=== PATIENT | female | born 1995 | race Caucasian/White ===

== ENCOUNTER 2017-07-01 22:20 | Emergency (ER) | payer SELFPAY ==
[2017-07-01 22:25] VITALS: BP 136/79; PULSE 70; TEMP 98.4; BMI 17.7
[2017-07-01] MEDS ORDERED: FAMOTIDINE 20 MG/50 ML IVPB 50 ML IVPB ONE ×2 (22:39→22:44)
[2017-07-01] MEDS ORDERED: methylPREDNISolone NA SUCC 125 MG/2 ML VIAL IVPB ONE (22:39)
[2017-07-01] MEDS ORDERED: methylPREDNISolone NA SUCC 1000 MG/8 ML VIAL ONE (22:45)
[2017-07-01] MEDS ORDERED: ALBUTEROL SO4 2.5/IPRATROPIUM 0.5 INH SOL 3 ML VIAL.NEB. NEB ONE ×2 (22:52→23:07)
--- NOTE | 2017-07-01 22:52 | PDOC ---
History of Present Illness - General Chief Complaint: Allergic Reaction Stated Complaint: ALLERGIC REACTION Time Seen by Provider: 07/01/17 22:34 - History of Present Illness Initial Comments: 21 year old healthy female with PMH of seasonal allergies and anxiety presenting with bilateral eye lid swelling for the past 5 hours. She had some peanuts around 17:30 PM then noticed rhinorrhea and cough after 30 minutes. Shortly after she noticed swelling of her left eyelid which eventually presented in her right eye lid as well. She denies respiratory symptoms or oral swelling/ drooling. She has no family members with food allergies and has eaten peanuts without issue in the past. She denies fevers, cough chills, nausea, vomiting, diarrhea, chest pain, or other sick symptoms 07/01/17 22:43 Past History - Past Medical History Allergies/Adverse Reactions: Allergies Allergy/AdvReac Type Severity Reaction Status Date / Time No Known Allergies Allergy Verified 07/01/17 22:23 Home Medications: Ambulatory Orders NK [No Known Home Medication] 03/16/15 Psychiatric Problems: Yes (anxiety) - Immunization History Immunization Up to Date: Yes - Psycho/Social/Smoking Cessation Hx Anxiety: No Suicidal Ideation: No Smoking History: Never smoked Have you smoked in the past 12 months: No Hx Alcohol Use: No Substance Use Type: None Review of Systems - Review of Systems Constitutional: No: Chills, Diaphoresis, Fever HEENTM: No: Blurred Vision, Recent change in vision Respiratory: No: Cough, Shortness of Breath, Wheezing Cardiac (ROS): No: Chest Pain, Edema, Lightheadedness ABD/GI: No: Constipated, Diarrhea, Nausea, Vomiting Integumentary: Yes: Change in Color, Lesions Neurological: No: Headache, Paresthesia *Physical Exam - Vital Signs Last Vital Signs Temp Pulse Resp BP Pulse Ox 98.4 F 70 18 136/79 100 07/01/17 22:23 07/01/17 22:23 07/01/17 22:23 07/01/17 22:23 07/01/17 22:23 - Physical Exam General Appearance: Yes: Nourished, Appropriately Dressed. No: Apparent Distress HEENT: positive: EOMI, KOLBY, Normal Voice, Pharynx Normal, Pharyngeal Erythema, Rhinorrhea, Other (Bilateral swollen eyelids). negative: Normal ENT Inspection , Muffled/Hoarse voice Neck: positive: Trachea midline, Normal Thyroid, Supple. negative: Tender, Rigid Respiratory/Chest: positive: Lungs Clear, Normal Breath Sounds. negative: Chest Tender, Respiratory Distress, Accessory Muscle Use Cardiovascular: positive: Regular Rhythm, Regular Rate, S1, S2. negative: Edema , Murmur Gastrointestinal/Abdominal: positive: Normal Bowel Sounds, Flat, Soft. negative : Tender Musculoskeletal: positive: Normal Inspection Extremity: positive: Normal Inspection, Normal Range of Motion Integumentary: positive: Dry, Warm. negative: Normal Color (Slight periorbital edema) Neurologic: positive: Fully Oriented, Alert, Normal Mood/Affect, Normal Response , Motor Strength 5/5 Medical Decision Making - Medical Decision Making 21 year old female with suspected peanut allergy reaction without respiratory symptoms. Gave duonebs, 80 of solumedrol, and 25 of Benadryl all IV. Will recheck in 30 minutes for resolution of symptoms. 07/01/17 23:40 Patient signed out to Dr. Chavez in stable condition after being counseled about epi-pen usage. Will re-examine the patient in 30 minutes and assess for discharge. 07/01/17 23:58 07/02/17 00:00 *DC/Admit/Observation/Transfer Diagnosis at time of Disposition: Allergy to food - Discharge Dispostion Disposition: HOME Condition at time of disposition: Improved Admit: No - Patient Instructions Printed Discharge Instructions: DI for Eye Allergic Reaction Additional Instructions: You were seen for an allergic reaction after eating peanuts. You should avoid all nuts until you see your primary care physician or an options trader to determine your exact allergy. We prescribed you an epi-pen that you should car pick up driver and carry with you in case you have another allergic reaction. - Attestations Physician Attestion: Dr. Velasquez attests this. 07/01/17 23:56
== END 2017-07-02 00:23 | disposition home or self-care (01) ==
LOC: JER 22:20
PROC: 3E0F7GC Introduction of Other Therapeutic Substance into Respiratory Tract, Via Natural or Artificial Opening (ICD-10-PCS; principal; 2017-07-01)
PROC: 3E033GC Introduction of Other Therapeutic Substance into Peripheral Vein, Percutaneous Approach (ICD-10-PCS; 2017-07-01)
PROC: 3E033GC Introduction of Other Therapeutic Substance into Peripheral Vein, Percutaneous Approach (ICD-10-PCS; 2017-07-01)
PROC: 3E0333Z Introduction of Anti-inflammatory into Peripheral Vein, Percutaneous Approach (ICD-10-PCS; 2017-07-01)
DX: T78.1XXA Other adverse food reactions, not elsewhere classified, initial encounter (principal); H02.846 Edema of left eye, unspecified eyelid; R05 Cough; J34.89 Other specified disorders of nose and nasal sinuses; X58.XXXA Exposure to other specified factors, initial encounter; Y93.89 Activity, other specified; Y92.89 Other specified places as the place of occurrence of the external cause
CPT/HCPCS: 99281-25

== ENCOUNTER 2017-12-01 15:17 | Emergency (ER) | payer OTHER ==
[2017-12-01 15:22] VITALS: BP 109/44; PULSE 102; TEMP 98; BMI 18.1
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
== END 2017-12-01 17:11 | disposition home or self-care (01) ==
LOC: JER 15:17
DX: F41.0 Panic disorder [episodic paroxysmal anxiety] (principal)
CPT/HCPCS: 99281-25

== ENCOUNTER 2019-04-25 23:10 | Inpatient (IN) | payer OTHER ==
[2019-04-25] MEDS ORDERED: AMPICILLIN - 2 GM in SODIUM CHLORIDE 100 ML IVPB ONE (23:45)
[2019-04-26] MEDS ORDERED: AMPICILLIN SODIUM 2 GM VIAL ONE (00:26)
[2019-04-26 01:15] LABS: BASO % 0.4 % (0-2.0); EOS % 1.3 % (0-4.5); HEMATOCRIT 37.3 % (32.4-45.2); HEMOGLOBIN 12.5 GM/dL (10.7-15.3); LYMPH % 12.8 % (8-40); MCH 28.9 pg (25.7-33.7); MCHC 33.5 g/dl (32.0-36.0); MEAN CELL VOLUME 86.5 fl (80-96); MEAN PLT VOLUME 10.4 fl (7.5-11.1); MONO % 8.1 % (3.8-10.2); NEUT % 77.4 % (42.8-82.8); PLATELET COUNT 203 K/MM3 (134-434); RBC 4.31 M/mm3 (3.60-5.2); RDW 12.2 % (11.6-15.6)
[2019-04-26 01:24] VITALS: BMI 25.2
[2019-04-26 01:32] LABS: INR 0.91 (0.83-1.09); PROTHROMBIN TIME (PATIENT) 10.7 SEC (9.7-13.0)
[2019-04-26 01:36] LABS: BLOOD UREA NITROGEN 9.1 mg/dL (7-18); CALCIUM 9.2 mg/dL (8.5-10.1); CREATININE 0.7 mg/dL (0.55-1.3); POTASSIUM 4.4 mmol/L (3.5-5.1)
[2019-04-26] MEDS ORDERED: TUBERCULIN PPD 5 TU/0.1ML SYRINGE (IN PATIENT USE ONLY) ID ONE (01:45)
[2019-04-26] MEDS ORDERED: DEXTROSE 5%-LACTATED RINGERS 1,000 ML IV SCH ×2 (01:45→10:30)
[2019-04-26] MEDS: AMPICILLIN - 1 GM in SODIUM CHLORIDE 100 ML IVPB SCH ×4 (05:00→18:03)
[2019-04-26] MEDS ORDERED: BUTORPHANOL TARTRATE 2 MG/ML VIAL ONE (05:09)
[2019-04-26] MEDS ORDERED: PROMETHAZINE HCL 25 MG/1 ML VIAL ONE ×2 (05:10→10:21)
[2019-04-26] MEDS ORDERED: AMPICILLIN SODIUM 1 GM VIAL ONE ×3 (05:10→13:01)
[2019-04-26] MEDS ORDERED: DEXTROSE 5%-LACTATED RINGERS 1,000 ML IV ONE (06:00)
[2019-04-26] MEDS ORDERED: BUTORPHANOL TARTRATE 2 MG/ML VIAL IVPB ONE ×2 (06:00→14:15)
[2019-04-26] MEDS ORDERED: PROMETHAZINE HCL 25 MG/1 ML VIAL IVPB ONE ×2 (06:00→14:15)
[2019-04-26] MEDS ORDERED: BUTORPHANOL TARTRATE 1 MG/ML VIAL ONE (10:21)
--- NOTE | 2019-04-26 10:35 | HP ---
Past Medical History - Primary Care Physician PCP:: Axel Marquez - Admission Chief Complaint: 23yo P0 with at EGA 37w5d admitted in spontaneous labor. History of Present Illness: The pt had uncomplicated care. Vaginal GBS positive Pt was admitted with spontaneous labor. She appears to have SROM at unknown time. The pt was given IV abx for prophylaxis. The pt's labor had progressed to active phase spontaneously. Pain has been managed with IV sedation, per pt request. 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: No: Alzheimer's, CVA, Dementia, Migraine, Multiple Sclerosis, Peripheral Neuropathy, Parkinson's, Seizure, Syncope, TIA, Vertigo, Other Cardiovascular: No: AFIB, Aneurysm, Aortic Insufficiency, Aortic Stenosis, CAD, CHF, Deep Vein Thrombosis, HTN, Hyperlipdemia, [place], Mitral Insufficiency, Mitral Stenosis, Murmur, Pulmonary Hypertension, Other Pulmonary: No: Asthma, Bronchitis, Cancer, COPD, O2 Dependent, Pneumonia, Previously Intubated, Pulmonary Embolus, Pulmonary Fibrosis, Sleep Apnea, Other Gastrointestinal: No: Ascites, Cancer, Constipation, Crohn's Disease, Diverticulitis, Diverticulosis, Esophageal Varices, Gastritis, GERD, GI Bleed, Hemorrhoids, Hiatal Hernia, Inflamatory Bowel Disease, Irritable Bowel Disease, Pancreatitis, Peptic Ulcer Disease, Ulcerative Colitis, Other Hepatobiliary: No: Cirrhosis, Cholelithiasis, Cholecystitis, Choledocholithiasis , Hepatitis A, Hepatitis B, Hepatitis C, Other Reproductive: No: Ectopic , Endometriosis, Fibroids, PID, Polycystic Ovary Syndrome, Postmenopausal, Other ...: 1 ...Para: 0 ...LMP: 08/28/18 ...EDC by Dates: 06/04/19 ...EDC by Sono: 05/11/19 Heme/Onc: No: Anemia, B12 Deficiency, Bleeding Disorder, Cancer, Current Chemotherapy, Current Radiation Therapy, Hemochromatosis, Hypercoaguable State, Myeloproliferative Synd, Sickle Cell Disease, Sickle Cell Trait, Thrombocytopenia, Other Infectious Disease: No: AIDS, C-Diff, Herpes Zoster, HIV, MRSA, STD's, Tuberculosis, VREF, Other Psych: Yes: Anxiety Musculoskeletal: No: Bursitis, Chronic low back pain, Hemiparesis, Hemiplegia, Osteoarthritis, Paraplegia, Other Rheumatology: No: Fibromyalgia, Gout, Lupus, Rheumatoid Arthritis, Sarcoidosis, Vasculitis, Other ENT: No: Allergic Rhinitis, Sinusitis, Other Endocrine: No: [place]'s Disease, Acworth's Disease, Diabetes Insipidus, Diabetes Mellitus, Hyperparathyroidism, Hyperthyroidism, Hypothyroidism, Osteopenia, SIADH, Other Dermatology: No: Basal Cell, Cellulitis, Eczema, Melanoma, Psoriasis, Squamous Cell, Other - Past Surgical History Past Surgical History: Yes: None Hx Myomectomy: No Hx Transabdominal Cerclage: No - Smoking History Smoking history: Never smoked Have you smoked in the past 12 months: No - Alcohol/Substance Use Hx Alcohol Use: No History of Substance Use: reports: None - Social History Usual Living Arrangement: Yes: With Spouse ADL: Independent History of Recent Travel: No Home Medications - Allergies Allergies/Adverse Reactions: Allergies Allergy/AdvReac Type Severity Reaction Status Date / Time nut - unspecified Allergy Mild Rash Verified 04/26/19 01:29 - Home Medications Home Medications: Ambulatory Orders 19 Tablet 1 tab PO DAILY 04/26/19 Family Disease History - Family Disease History Family History: Denies Review of Systems - Review of Systems Constitutional: reports: No Symptoms, Other (pain with contractions) Eyes: reports: No Symptoms HENT: reports: No Symptoms Neck: reports: No Symptoms Cardiovascular: reports: No Symptoms Respiratory: reports: No Symptoms Gastrointestinal: reports: No Symptoms Genitourinary: reports: No Symptoms Breasts: reports: No Symptoms Reported Musculoskeletal: reports: No Symptoms Integumentary: reports: No Symptoms Neurological: reports: No Symptoms Endocrine: reports: No Symptoms Hematology/Lymphatic: reports: No Symptoms Psychiatric: reports: No Symptoms Pain Intensity: 9 Physical Exam - Maternity Vital Signs: Vital Signs Temperature 98.9 F 04/26/19 08:00 Pulse Rate 75 04/26/19 10:00 Respiratory Rate 17 04/26/19 10:00 Blood Pressure 119/74 04/26/19 10:00 O2 Sat by Pulse Oximetry (%) Constitutional: Yes: Well Nourished, No Distress, Calm Eyes: Yes: WNL, Conjunctiva Clear HENT: Yes: WNL, Atraumatic, Normocephalic Neck: Yes: WNL, Supple, Trachea Midline Cardiovascular: Yes: WNL, Regular Rate and Rhythm Lungs: Clear to auscultation, Normal air movement Breast(s): Yes: WNL - Abdominal Exam/OB Fundal Height: 38 Number of Fetuses: Single Presentation: Vertex Contractions: Yes Regularity: Regular Intensity: Mod/Strong Monitor Mode: External Heart Rate (range): 140 Heart Rate Location: Midline Category: I Accelerations: None (After stadol given) Decelerations: None - Vaginal Exam/OB Vaginal Bleediing: Bloody Show Speculum Exam: No Dilatation (cm): 8.5 Effacement (%): 90 Amniotic Membrane Status: Leaking Presentation: Vertex/Position Station: 0 - Physical Exam Musculoskeletal: Yes: WNL Extremities: Yes: WNL Edema: No Integumentary: Yes: WNL Deep Tendon Reflex Grade: Normal +2 ...Motor Strength: WNL Psychiatric: Yes: WNL, Alert, Oriented - Labs Lab Results: CBC, BMP 04/26/19 00:15 04/26/19 00:15 Hemorrhage Risk Assessment - Risk Factors Medium Risk Factors: Yes: None High Risk Factors: Yes: None Risk Score: 1 Risk Level: Medium Risk Imaging - Results Ultrasound: Report Reviewed Assessment/Plan 23yo P0 with at EGA 37w5d admitted in spontaneous labor. The pt has been progressing in active phase. Plan to continue monitoring progress. She declined an epidural but requested Stadol/Phenergan. Sedation was given x 2 Fetus with Category I tracing and does not require intervention.
[2019-04-26] MEDS ORDERED: FENTANYL/BUPIVACAINE/NS/PF - PCEA - 50 ML DISP.SYRIN EP ONE ×2 (12:14→16:19)
[2019-04-26] MEDS ORDERED: NALOXONE HCL 0.4 MG/ML VIAL IVPUSH PRN (13:32)
[2019-04-26] MEDS ORDERED: FENTANYL/BUPIVACAINE/NS/PF - PCEA - 50 ML DISP.SYRIN EP SCH ×2 (13:45→13:54)
--- NOTE | 2019-04-26 15:54 | PN ---
Progress Note, Labor Vaginal Exam #1 Labor Exam Date: 04/26/19 Labor Exam Time: 15:50 Heart Rate (range): 145 Dilatation: 7-8 Effacement (%): 90 Amniotic Membrane Status: Intact Presentation: Vertex/Position Station: -1 Remarks: Overall MF status reassuring AROM - clear FHR c/w recent Stadol administration - O2 by face mask will continue monitoring progress of labor
[2019-04-26] MEDS ORDERED: OXYTOCIN 20 UNITS in 0.9% NS 20 UNIT/1,000 ML INFUS.BAG IV ONE ×2 (17:00→18:43)
[2019-04-26] MEDS ORDERED: LIDOCAINE HCL 1% PRESERVATIVE FREE - 30ML VIAL ONE (17:00)
[2019-04-26] MEDS ORDERED: ACETAMINOPHEN 325 MG TABLET (FP) PO PRN (17:45)
[2019-04-26] MEDS ORDERED: METHYLERGONOVINE MALEATE 0.2 MG/1 ML AMP IM PRN (17:45)
[2019-04-26] MEDS ORDERED: IBUPROFEN 600 MG TABLET (FP) PO PRN (17:45)
[2019-04-26] MEDS ORDERED: WITCH HAZEL 50% (TUCKS) 40 PAD/JAR PAD TP PRN (17:45)
[2019-04-26] MEDS ORDERED: BENZOCAINE 20% 57 GM BOTTLE TP PRN (17:45)
[2019-04-26] MEDS ORDERED: BISACODYL 10 MG SUPP.RECT RC PRN (17:45)
[2019-04-26] MEDS ORDERED: BENZOCAINE 28 GM HEMORRHOIDAL OINTMENT TP PRN (17:45)
--- NOTE | 2019-04-26 17:51 | PN ---
Delivery - Delivery Vaginal Delivery: No Problems Type of Anesthesia: Local, Spinal Episiotomy/Laceration: Midline, 2nd degree EBL (cc): 300 Delivery, Single - Stages of Labor Date 1st Stage Initiatied: 04/25/19 Time 1st Stage Initiated: 13:00 Date 2nd Stage Initiated: 04/26/19 Time 2nd Stage Initiated: 17:05 Date of Delivery: 04/26/19 Time of Delivery: 17:14 Date Placenta Delivered: 04/26/19 Time Placenta Delivered: 17:15 Placenta: Yes: Spontaneous - Condition of Infant Mounter Smoking Pipe/Aluminum Can Collector Present: No Infant Gender: Male Position: Left, OA - 1 Minute Total Score: 9 5 Minutes Total Score: 9 - Feeding Plan Initial Plan: Elected not to breastfeed exclusively throughout hospitalization Remarks - Remarks Remarks: Uncomplicated delivery of head and shoulders
[2019-04-26] MEDS: D5W-LR W/ 20 UNITS OXYTOCIN 20 UNIT/1,000 ML INFUS.BAG IV SCH ×2 (18:04→18:45)
[2019-04-26 18:23] LABS: VENOUS PH 7.27 (7.31-7.41)
[2019-04-26 18:26] LABS: ARTERIAL BLD GAS O2 SATURATION 18.2 % (95-98); ARTERIAL BLOOD GAS BASE EXCESS -3.6 meq/l (-2-2); ARTERIAL BLOOD GAS PCO2 62.8 mmHg (35-45); ARTERIAL BLOOD GAS pH 7.23 (7.35-7.45)
[2019-04-26 18:27] LABS: VENOUS PO2 17.7 mmHg (30-40)
[2019-04-26 18:31] LABS: ARTERIAL BLOOD GAS PO2 15.6 mmHg (80-105)
[2019-04-27] MEDS: AMPICILLIN - 1 GM in SODIUM CHLORIDE 100 ML IVPB SCH (06:24)
[2019-04-27 09:17] LABS: BASO % 0.2 % (0-2.0); EOS % 0.4 % (0-4.5); HEMOGLOBIN 10.3 GM/dL (10.7-15.3); LYMPH % 7.2 % (8-40); MCH 29.1 pg (25.7-33.7); MCHC 34.2 g/dl (32.0-36.0); MEAN CELL VOLUME 85.1 fl (80-96); MEAN PLT VOLUME 9.3 fl (7.5-11.1); MONO % 8.8 % (3.8-10.2); NEUT % 83.4 % (42.8-82.8); PLATELET COUNT 150 K/MM3 (134-434); RBC 3.52 M/mm3 (3.60-5.2); RDW 12.6 % (11.6-15.6)
[2019-04-27] MEDS: PRENATAL VITAMINS W/ FOLIC ACID TABLET (FP) PO SCH (09:30)
[2019-04-27] MEDS: FERROUS SO4 325 MG TABLET (FP) PO SCH ×2 (09:31→16:40)
--- NOTE | 2019-04-27 13:51 | PN ---
Post Progress Note - Subjective Subjective: Patient without acute complaints. Reports tolerating oral intake without nausea or vomiting. Ambulating without dizziness. Denies fevers or chills. Pain well controlled with oral pain medication. c/o pereneal pain without difficulty. Passing flatus. Post Day: 1 Type of Delivery: Vital Signs: Vital Signs Temperature 97.8 F 04/27/19 08:02 Pulse Rate 73 04/27/19 08:02 Respiratory Rate 18 04/27/19 08:02 Blood Pressure 105/69 04/27/19 08:02 O2 Sat by Pulse Oximetry (%) 97 04/26/19 18:10 Breast Exam: Yes: Soft Uterus: Yes: Fundus Firm Abdomen/GI: Yes: Abdomen soft Lochia: Yes: Rubra Lochia, amount: Small Perineum: Yes: Laceration (significant hemorrhoids) Activity: Ambulating - Labs Labs: CBC WBC 15.0 K/mm3 (4.0-10.0) H 04/27/19 08:36 RBC 3.52 M/mm3 (3.60-5.2) L 04/27/19 08:36 Hgb 10.3 GM/dL (10.7-15.3) L 04/27/19 08:36 Hct 30.0 % (32.4-45.2) L D 04/27/19 08:36 MCV 85.1 fl (80-96) 04/27/19 08:36 MCH 29.1 pg (25.7-33.7) 04/27/19 08:36 MCHC 34.2 g/dl (32.0-36.0) 04/27/19 08:36 RDW 12.6 % (11.6-15.6) 04/27/19 08:36 Plt Count 150 K/MM3 (134-434) D 04/27/19 08:36 MPV 9.3 fl (7.5-11.1) D 04/27/19 08:36 Absolute Neuts (auto) 12.5 K/mm3 (1.5-8.0) H 04/27/19 08:36 Neutrophils % 83.4 % (42.8-82.8) H 04/27/19 08:36 Lymphocytes % 7.2 % (8-40) L D 04/27/19 08:36 Monocytes % 8.8 % (3.8-10.2) 04/27/19 08:36 Eosinophils % 0.4 % (0-4.5) 04/27/19 08:36 Basophils % 0.2 % (0-2.0) 04/27/19 08:36 Nucleated RBC % 0 % (0-0) 04/27/19 08:36 Assessment/Plan 23yo P1 s/p VSS, Afebrile h/h stable Continue routine care consider d/c home in am
[2019-04-27] MEDS ORDERED: SENNOSIDES/DOCUSATE COMBO (SENNA PLUS) TABLET (UD) PO PRN (22:00)
[2019-04-28] MEDS: FERROUS SO4 325 MG TABLET (FP) PO SCH (08:08)
[2019-04-28 08:25] VITALS: BP 116/81; PULSE 73; TEMP 98.3
[2019-04-28] MEDS: PRENATAL VITAMINS W/ FOLIC ACID TABLET (FP) PO SCH (09:15)
--- NOTE | 2019-04-28 09:36 | DS ---
Physical Exam-CONTACT CENTER REP Vital Signs: Vital Signs Temperature 98.3 F 04/28/19 08:00 Pulse Rate 73 04/28/19 08:00 Respiratory Rate 20 04/28/19 08:00 Blood Pressure 116/81 04/28/19 08:00 O2 Sat by Pulse Oximetry (%) 97 04/26/19 18:10 Constitutional: Yes: Well Nourished, No Distress, Calm Eyes: Yes: WNL HENT: Yes: WNL Neck: Yes: WNL, Supple, Trachea Midline Cardiovascular: Yes: WNL, Regular Rate and Rhythm Respiratory: Yes: WNL, Regular, CTA Bilaterally Gastrointestinal: Yes: WNL, Normal Bowel Sounds, Soft Renal/: Yes: WNL External Genitalia: Yes: Normal ....Post : Yes: Uterus firm, Uterus non-tender Breast(s): Yes: WNL Musculoskeletal: Yes: WNL Extremities: Yes: WNL Integumentary: Yes: WNL Wound/Incision: Yes: Clean/Dry, Well Approximated Neurological: Yes: WNL, Alert, Oriented ...Motor Strength: WNL Psychiatric: Yes: WNL, Alert, Oriented Labs: CBC, BMP 04/27/19 08:36 04/26/19 00:15 Delivery - Delivery Vaginal Delivery: No Problems Type of Anesthesia: Local, Epidural Episiotomy/Laceration: Midline, 2nd degree EBL (cc): 300 Delivery, Single - Stages of Labor Date 1st Stage Initiatied: 04/25/19 Time 1st Stage Initiated: 13:00 Date 2nd Stage Initiated: 04/26/19 Time 2nd Stage Initiated: 16:55 Date of Delivery: 04/26/19 Time of Delivery: 17:19 Time Placenta Delivered: 17:20 Placenta: Yes: Spontaneous - Condition of Legal Support Specialist/Siderographist Present: No Gender: Male Weight: 7 lb 14 oz Position: Left, OA Total Hours ROM (Hrs/Mins): 1 hour 30 minutes - 1 Minute Total Score: 9 5 Minutes Total Score: 9 - Feeding Plan Initial Plan: Elected not to breastfeed exclusively throughout hospitalization Remarks - Remarks Remarks: Uncomplicated delivery of head and shoulders Discharge Summary Reason For Visit: LABOR Procedures: Principal: Normal spontaneous vaginal delivery Hospital Course: Unremarkable Condition: Good - Instructions Diet, Activity, Other Instructions: Physical activity Resume your normal everyday activity as tolerated no heavy lifting or exercise until seen by your surgeon. You may walk unlimited pancho of and climb stairs. You may resume driving the car when you feel safe and comfortable behind the wheel. No sexual activity as instructed. Wound care If you have a bandage, leave it on, and keep dry for 48-72 hours. After that time discard the outer bandage. If they are tapes on the skin under the out of bandage leave them in place. They will peel off in the next 7 to 10 days. Do Not Peel them off. You may shower the day after surgery. If there are tapes present on the skin, you may shower over them. Diet There are no dietary restrictions. Eat healthy, high-fiber foods. Drink 6 to 8 glasses of liquid each day. This will assist in keeping your bowels are regular. Pain management You may take Tylenol or acetaminophen or Ibuprofen (for example, Motrin, Advil etc.) from my pain prescription medication is ordered should be taken as prescribed for moderate to severe pain. Call MD for any of the following: Severe pain not relieved by medication Fever of 101 or higher Excessive bleeding or drainage on dressing Inability to urinate Call Dr. Stanton and make appt. to be seen in 4 to 6 weeks. Referrals: Symone Stanton MD [Staff Physician] - Disposition: HOME - Home Medications Comprehensive Discharge Medication List: Ambulatory Orders 19 Tablet 1 tab PO DAILY 04/26/19
== END 2019-04-28 14:15 | disposition home or self-care (01) | DRG 560 ==
LOC: JDEL 23:10 → JLDR 23:45 → J3W 04-26 20:53
PROVIDERS: ADMIT Obstetrics & Gynecology; ATTEND Obstetrics & Gynecology
PROC: 0KQM0ZZ Repair Perineum Muscle, Open Approach (ICD-10-PCS; principal; 2019-04-26)
PROC: 10E0XZZ Delivery of Products of Conception, External Approach (ICD-10-PCS; 2019-04-26)
DX: O99.824 Streptococcus B carrier state complicating childbirth (principal); O70.1 Second degree perineal laceration during delivery; Z3A.37 37 weeks gestation of pregnancy; Z37.0 Single live birth
CPT/HCPCS: 36415; 36600; 59409; 71046-TC-FY; 80048; 82803; 85025; 85610; 85730; 86593; 86850; 86900; 86901

== ENCOUNTER 2019-05-28 21:48 | Emergency (ER) | payer OTHER ==
[2019-05-28 21:53] VITALS: TEMP 98.1; BMI 20.3
[2019-05-28] MEDS ORDERED: RACEPINEPHRINE IH SOL 2.25% 11.25 MG/0.5 ML VIAL IH ONE (21:58)
[2019-05-28] MEDS ORDERED: RACEPINEPHRINE IH SOL 2.25% 11.25 MG/0.5 ML VIAL NEB ONE (22:04)
[2019-05-28] MEDS ORDERED: methylPREDNISolone NA SUCC 125 MG/2 ML VIAL IVPB ONE (23:23)
[2019-05-28] MEDS ORDERED: FAMOTIDINE 20 MG/50 ML IVPB 20 MG/50 ML MG IVPB ONE (23:25)
--- NOTE | 2019-05-28 23:30 | PDOC ---
History of Present Illness - General Chief Complaint: Allergic Reaction Stated Complaint: ALLERGIC REACTION Time Seen by Provider: 05/28/19 21:55 History Source: Patient Exam Limitations: No Limitations - History of Present Illness Initial Comments: 05/28/19 23:28 23 yo female pmh of anaphylactic penut allergy presents to the ED after noted bilateral eye swelling and itchy throat at 9 pm. Pt notes eating a desert around 2 pm, unknown if nuts were in the desert. Pt states the last time she had this rxn was 2 years ago, has not seen an network design architect, does not own an epipen. Denies difficulty breathing, tongue swelling, drooling, admits bilateral eye swelling and itchy throat Past History - Past Medical History Allergies/Adverse Reactions: Allergies Allergy/AdvReac Type Severity Reaction Status Date / Time peanut Allergy Severe Difficulty Verified 05/28/19 21:53 Breathing Home Medications: Ambulatory Orders 19 Tablet 1 tab PO DAILY 04/26/19 EPINEPHrine (EPI-PEN 0.3MG) [Epipen 0.3MG -] 0.3 mg IM ASDIR #2 pens 05/28/19 Asthma: No Cancer: No Cardiac Disorders: No COPD: No Diabetes: No HTN: No Psychiatric Problems: Yes (anxiety) Seizures: No Thyroid Disease: No - Immunization History Immunization Up to Date: Yes - Suicide/Smoking/Psychosocial Hx Smoking History: Never smoked Have you smoked in the past 12 months: No Information on smoking cessation initiated: No Hx Alcohol Use: No Drug/Substance Use Hx: No Substance Use Type: None Hx Substance Use Treatment: No *Physical Exam - Vital Signs Last Vital Signs Temp Pulse Resp BP Pulse Ox 98.1 F 89 20 132/64 100 05/28/19 21:49 05/28/19 23:10 05/28/19 23:10 05/28/19 23:10 05/28/19 23:10 ED Treatment Course - Medications Given in the ED: ED Medications Discontinued Medications Generic Name Dose Route Start Last Admin Trade Name Freq PRN Reason Stop Dose Admin Epinephrine 1 vial 05/28/19 21:58 05/28/19 22:05 S-2 IH 05/28/19 21:59 1 vial ONCE ONE Administration Medical Decision Making - Medical Decision Making 05/29/19 01:55 Medications used in the ED, Benadryl may cause adverse events during breast feeding. Pt advised while on medication to not breast feed and to follow with rehabilitation specialist for clearance. *DC/Admit/Observation/Transfer Diagnosis at time of Disposition: Allergic reaction Qualifiers: Encounter type: subsequent encounter Qualified Code(s): T78.40XD - Allergy, unspecified, subsequent encounter - Discharge Dispostion Disposition: HOME Condition at time of disposition: Critical Decision to Admit order: No - Prescriptions Prescriptions: EPINEPHrine (EPI-PEN 0.3MG) [Epipen 0.3MG -] 0.3 mg IM ASDIR #2 pens - Referrals Referrals: Mehnaz Davis MD [Staff Physician] - - Patient Instructions Printed Discharge Instructions: DI for Anaphylaxis Additional Instructions: Please see your Primary Doctor and make an appointment with the [facility] [employer] referred to you. 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 Use the Epipen and Benadryl as described if you have another similar reaction and head to your closest ER. Return to the ER for new or concerning symptoms including but not limited to: difficulty breathing, facial swelling, swelling of the tongue, drooling, neck swelling. Do not breast feed until speaking with your contract administration specialist after taking Benadryl in ER. Thank you - Post Discharge Activity
--- NOTE | 2019-05-28 23:49 | PDOC ---
Documentation entered by Dayami Thurston SCRIBE, acting as scribe for Kasia Casarez DO. Kasia Casarez DO: This documentation has been prepared by the nena, Dayami Thurston SCRIBE, under my direction and personally reviewed by me in its entirety. I confirm that the documentation accurately reflects all work , treatment, procedures, and medical decision making performed by me. Attending Attestation - Resident Resident Name: Cornelius Joseph - ED Attending Attestation I have performed the following: I have examined & evaluated the patient, The case was reviewed & discussed with the resident, I agree w/resident's findings & plan, Exceptions are as noted - HPI HPI: 05/28/19 22:58 The patient is a 23-year-old female, with a past medical history of anxiety, who presents to the ED s/p allergic reaction. The patient had a dessert at 2 PM today and after at 5 PM she began experiencing facial swelling and throat itching. She reports having a peanut allergy. The patient denies any tongue swelling, throat swelling, excessive drooling or shortness of breath. - Physicial Exam PE: 05/28/19 23:47 agree with resident exam - Medical Decision Making 05/28/19 23:47 23-year-old female status post ALLERGIC reaction to unknown allergen On reevaluation at 11:40 PM patient is status post Solu-Medrol, Pepcid and Benadryl and racemic epinephrine She has some residual eyelid swelling but has no difficulty breathing swallowing There is no uvular edema She was sleeping comfortably until I woke her Plan for continued observation for a total of 4 hours, patient will be discharged home with Medrol Dosepak, EpiPen's Pepcid and Anadrol when necessary
[2019-05-29 02:09] VITALS: BP 131/69; PULSE 72
== END 2019-05-29 02:09 | disposition home or self-care (01) ==
LOC: JER 21:48
PROC: 3E0337Z Introduction of Electrolytic and Water Balance Substance into Peripheral Vein, Percutaneous Approach (ICD-10-PCS; principal; 2019-05-28)
PROC: 3E033GC Introduction of Other Therapeutic Substance into Peripheral Vein, Percutaneous Approach (ICD-10-PCS; 2019-05-28)
DX: T78.40XD Allergy, unspecified, subsequent encounter (principal); F41.9 Anxiety disorder, unspecified
CPT/HCPCS: 99282-25

== ENCOUNTER 2019-12-06 02:12 | Emergency (ER) | payer OTHER ==
[2019-12-06 02:25] VITALS: BP 127/78; PULSE 95; TEMP 98.4; BMI 18.7
[2019-12-06] MEDS ORDERED: SODIUM CHLORIDE 0.9% 500 ML INFUS.BAG IV ONE (02:40)
--- NOTE | 2019-12-06 02:46 | PDOC ---
History of Present Illness - General Chief Complaint: Nausea/Vomiting Stated Complaint: VOMITING Time Seen by Provider: 12/06/19 02:32 History Source: Patient Exam Limitations: No Limitations - History of Present Illness Initial Comments: 12/06/19 02:40 Aisha Ontiveros is a 24F presenting with nausea and vomiting. Patient was otherwise healthy today, said she ate [employer] in the AM, had a smoothie, and ate [employer] for dinner. 30 minutes after began having nausea, took a nap, woke up with epigastric pain and nausea, vomited 7x NBNB, no diarrhea. Has never had this pain before, denies any pain after meals, pain worse with standing and walking. Denies dizziness, chest pain, SOB, palpitations , urinary sx. Recently gave last May, LMP Toni.8, due soon, denies risk of . Denies alcohol/tobacco/drug use. Past History - Past Medical History Allergies/Adverse Reactions: Allergies Allergy/AdvReac Type Severity Reaction Status Date / Time peanut Allergy Severe Difficulty Verified 12/06/19 02:24 Breathing Home Medications: Ambulatory Orders Ondansetron [Zofran *Odt*] 4 mg SL TID #12 od.tablet 12/06/19 Asthma: No Cancer: No Cardiac Disorders: No COPD: No Diabetes: No HTN: No Psychiatric Problems: Yes (anxiety) Seizures: No Thyroid Disease: No - Immunization History Immunization Up to Date: Yes - Psycho Social/Smoking Cessation Hx Smoking History: Never smoked Have you smoked in the past 12 months: No Information on smoking cessation initiated: No Hx Alcohol Use: No Drug/Substance Use Hx: No Substance Use Type: None Hx Substance Use Treatment: No Review of Systems - Review of Systems Able to Perform ROS?: Yes Constitutional: No: Chills, Fever HEENTM: No: Symptoms Reported Respiratory: No: Cough, Shortness of Breath, SOB with Exertion, SOB at Rest, Stridor, Wheezing Cardiac (ROS): No: Chest Pain, Edema, Irregular Heart Rate, Lightheadedness, Palpitations, Syncope ABD/GI: Yes: Nausea, Poor Appetite, Poor Fluid Intake, Vomiting, Other ( abdominal pain). No: Abdominal Distended, Abd. Pain w/ defecation, Constipated , Diarrhea : No: Burning, Dysuria, Discharge, Frequency, Flank Pain, Hematuria, Incontinence Musculoskeletal: No: Back Pain, Gout, Joint Pain, Joint Swelling, Muscle Pain, Muscle Weakness Integumentary: No: Symptoms Reported Neurological: No: Headache, Numbness, Paresthesia, Pre-Existing Deficit, Seizure , Tremors, Weakness Endocrine: No: Symptoms Reported Hematologic/Lymphatic: No: Symptoms Reported All Other Systems: Reviewed and Negative *Physical Exam - Vital Signs Last Vital Signs Temp Pulse Resp BP Pulse Ox 98.4 F 95 H 20 127/78 100 12/06/19 02:24 12/06/19 02:24 12/06/19 02:24 12/06/19 02:24 12/06/19 02:24 - Physical Exam General Appearance: Yes: Nourished, Appropriately Dressed. No: Apparent Distress HEENT: positive: EOMI, KOLBY, Normal Voice, Symmetrical, Pharynx Normal, Hearing Grossly Normal. negative: Scleral Icterus (R), Scleral Icterus (L), Pharyngeal Erythema, Tonsillar Exudate, Tonsillar Erythema, Hearing Decreased Neck: positive: Trachea midline, Supple. negative: Tender, Normal Thyroid, Rigid, Lymphadenopathy (R), Lymphadenopathy (L), Tender lateral, Tender midline Respiratory/Chest: positive: Lungs Clear, Normal Breath Sounds. negative: Chest Tender, Respiratory Distress, Accessory Muscle Use, Crackles, Rales, Rhonchi, Stridor, Wheezing Cardiovascular: positive: Regular Rhythm, Regular Rate. negative: Murmur Gastrointestinal/Abdominal: positive: Normal Bowel Sounds, Soft. negative: Tender, Flat Musculoskeletal: positive: Normal Inspection. negative: CVA Tenderness, Vertebral Tenderness Extremity: positive: Normal Capillary Refill, Normal Inspection, Normal Range of Motion, Pelvis Stable Integumentary: positive: Normal Color, Dry, Warm Neurologic: positive: Fully Oriented, Alert, Normal Mood/Affect, Normal Response ED Treatment Course - LABORATORY CBC & Chemistry Diagram: 12/06/19 03:00 12/06/19 03:00 Medical Decision Making - Medical Decision Making 12/06/19 05:51 Patient presents with nausea and vomiting, acute onset, no history GB disease, no alcohol use. Unclear if other sick contacts at home. - CMP/CBC for infection/lytes - lipase for pancreatitis eval - test for eval nausea - UA/UC for UTI eval - 1L NS, Zofran, Pepcid, Maalox for symptom control 12/06/19 05:53 Tolerating PO at this time, but still unable to stand without feeling nauseated. Giving 10mg Reglan for nausea. Will get UA/UC. Labs notable for: - negative - CMP WNL - WBC 13.5 12/06/19 07:01 UA negative. Stable for discharge home with PMD f/u. Zofran Rx sent. Discharge - Discharge Information Problems reviewed: Yes Clinical Impression/Diagnosis: Nausea & vomiting Qualifiers: Vomiting type: unspecified Vomiting Intractability: non-intractable Qualified Code(s): R11.2 - Nausea with vomiting, unspecified Condition: Stable Disposition: HOME - Follow up/Referral - Patient Discharge Instructions Patient Printed Discharge Instructions: DI for Viral Gastroenteritis -- Adult Additional Instructions: Today you were evaluated for abdominal pain and nausea/vomiting. Your pain is likely being caused by a viral food poisoning. Your blood labs do not show any significant infection. We gave you Zofran and fluids and you felt better. At home, please eat bland foods and drink enough fluids such as Gatorade to stay hydrated. Please follow-up with your primary doctor in the next 3 days for further care. If you experience worsening nausea, vomiting, fever, chills, abdominal pain, or any other new or concerning symptoms, please return to the emergency room. - Post Discharge Activity
--- NOTE | 2019-12-06 03:02 | PDOC ---
Attending Attestation - Resident Resident Name: Misha Parker - ED Attending Attestation I have performed the following: I have examined & evaluated the patient, The case was reviewed & discussed with the resident, I agree w/resident's findings & plan - HPI HPI: 12/06/19 03:17 Pt has nausea and vomited multiple times. - Physicial Exam PE: 12/06/19 06:19 Afebrile HEENT normal lungs CTA B Heart S1S2 RRR abd epigastric pain no flank pain No extremity pain or edema pt appears well; however, she had some dry heaving and now complains a bit about epigastric reflux burning. - Medical Decision Making 12/06/19 05:11 not ; Pt has normal chemistry CBC shows elevated WBC. 12/06/19 05:54 Chem is normal Pt appears well However, she states that she has GERD and epigastric and esophageal pain, which will be treated with BENTYL Pt cannot give us urine yet. 12/06/19 06:20 labs normal Pt is stable for discharge home. She will be encouraged to eat non-acidic and non-spicy foods.
[2019-12-06] MEDS ORDERED: FAMOTIDINE 20 MG/50 ML IVPB 20 MG/50 ML MG IVPB ONE (03:08)
[2019-12-06] MEDS ORDERED: MAG HYDROX/AL HYDROX/SIMETH -MYLANTA- ORAL SUSPENSION PO ONE (03:08)
[2019-12-06] MEDS ORDERED: ONDANSETRON 4 MG/2 ML VIAL IVPUSH ONE (03:08)
[2019-12-06 03:47] LABS: BASO % 0.2 % (0-2.0); EOS % 1.8 % (0-4.5); HEMATOCRIT 38.5 % (32.4-45.2); HEMOGLOBIN 12.6 GM/dL (10.7-15.3); LYMPH % 8.7 % (8-40); MCH 27.3 pg (25.7-33.7); MCHC 32.7 g/dl (32.0-36.0); MEAN CELL VOLUME 83.4 fl (80-96); NEUT % 82.3 % (42.8-82.8); PLATELET COUNT 210 K/MM3 (134-434); RBC 4.61 M/mm3 (3.60-5.2); RDW 12.3 % (11.6-15.6); WHITE BLOOD COUNT 13.5 K/mm3 (4.0-10.0)
[2019-12-06 04:43] LABS: ALBUMIN 3.9 g/dl (3.4-5.0); BILIRUBIN,TOTAL 0.3 mg/dL (0.2-1); BLOOD UREA NITROGEN 15.2 mg/dL (7-18); CALCIUM 8.3 mg/dL (8.5-10.1); CREATININE 0.7 mg/dL (0.55-1.3); POTASSIUM 3.5 mmol/L (3.5-5.1); TOT PROT 6.7 g/dl (6.4-8.2)
[2019-12-06] MEDS ORDERED: METOCLOPRAMIDE HCL INJECTION 10 MG/2 ML VIAL IVPB ONE (05:20)
[2019-12-06] MEDS ORDERED: DICYCLOMINE HCL 20 MG TABLET PO ONE (05:39)
[2019-12-06 07:01] LABS: URINE APPEARANCE CLEAR; URINE BILIRUBIN NEGATIVE (NEGATIVE); URINE COLOR YELLOW; URINE GLUCOSE (UA) NEGATIVE (NEGATIVE); URINE KETONE 1+ (NEGATIVE); URINE LEUK ESTERASE NEGATIVE (NEGATIVE); URINE NITRITE NEGATIVE (NEGATIVE); URINE PROTEIN NEGATIVE (NEGATIVE)
== END 2019-12-06 07:11 | disposition home or self-care (01) ==
LOC: JER 02:12
PROC: 3E033GC Introduction of Other Therapeutic Substance into Peripheral Vein, Percutaneous Approach (ICD-10-PCS; principal; 2019-12-06)
PROC: 3E033GC Introduction of Other Therapeutic Substance into Peripheral Vein, Percutaneous Approach (ICD-10-PCS; 2019-12-06)
PROC: 3E033GC Introduction of Other Therapeutic Substance into Peripheral Vein, Percutaneous Approach (ICD-10-PCS; 2019-12-06)
DX: R11.2 Nausea with vomiting, unspecified (principal); Z91.010 Allergy to peanuts; F41.9 Anxiety disorder, unspecified
CPT/HCPCS: 36415; 80053; 81003; 83690; 84703; 85025; 87086; 96365; 96375; 99282-25

== ENCOUNTER 2020-07-15 12:25 | Emergency (ER) | payer OTHER ==
[2020-07-15] MEDS ORDERED: ACETAMINOPHEN 325 MG TABLET (FP) ONE (13:09)
[2020-07-15] MEDS ORDERED: ACETAMINOPHEN 500 MG TABLET (FP) PO ONE (13:21)
--- NOTE | 2020-07-15 13:21 | PDOC ---
History of Present Illness - General Chief Complaint: Pain Stated Complaint: ABD PAIN/ LBP 11WKS PG Time Seen by Provider: 07/15/20 12:50 History Source: Patient Exam Limitations: No Limitations - History of Present Illness Travel History: No Initial Comments: 07/15/20 13:18 HISTORY OF PRESENT ILLNESS: 24-year-old 2 para 1 with last menstrual p eriod 04/25 presents emergency department for evaluation of lower abdominal cramping radiating to her lower back. Patient reports cramping sensation has been present for the past 24 hours. She denies any vaginal discharge or vaginal bleeding. She denies dysuria, hematuria, rectal bleeding, diarrhea. Patient does report having increased constipation but attributes it to vitamins. She denies any nausea or vomiting. No recent travel or sick contacts. PAST MEDICAL HISTORY: Denies past medical history SURGICAL HISTORY: Denies ALLERGIES: No known drug allergies REVIEW OF SYSTEMS General/Constitutional: Denies fever or chills. Denies weakness, weight change. HEENT: Denies change in vision. Denies ear pain or discharge. Denies sore throat. Cardiovascular: Denies chest pain or shortness of breath. Respiratory: Denies cough, wheezing, or hemoptysis. Gastrointestinal: See HPI Genitourinary: Denies dysuria, frequency, or change in urination. Musculoskeletal: Denies joint or muscle swelling or pain. Denies neck or back pain. Skin and breasts: Denies rash or easy bruising. Neurologic: Denies headache, vertigo, loss of consciousness, or loss of sensation. Psychiatric: Denies depression or anxiety. Endocrine: Denies increased thirst. Denies abnormal weight change. Hematologic/Lymphatic: Denies anemia, easy bleeding, or history of blood clots. Allergic/Immunologic: Denies hives or skin allergy. Denies latex allergy. PHYSICAL EXAM General Appearance: Well-appearing, appropriately dressed. No apparent distress, no intoxication. Respiratory/Chest: Lungs CTAB. No shortness of breath, chest tenderness, respiratory distress, accessory muscle use. No crackles, rales, rhonchi, stridor, wheezing, dullness Cardiovascular: RRR. S1, S2. No JVD, murmur, bradycardia, tachycardia. Gastrointestinal/Abdominal: Normal bowel sounds. Abdomen soft, non-distended. No tenderness or rebound tenderness. No organomegaly, pulsatile mass, guarding, hernia, hepatomegaly, splenomegaly. Musculoskeletal/Extremities: Normal inspection. FROM of all extremities, normal capillary refill. Pelvis Stable. No CVA tenderness. No tenderness to extremities, pedal edema, swelling, erythema or deformity. Past History - Medical History Allergies/Adverse Reactions: Allergies Allergy/AdvReac Type Severity Reaction Status Date / Time peanut Allergy Severe Difficulty Verified 07/15/20 12:33 Breathing Home Medications: Ambulatory Orders Ondansetron [Zofran *Odt*] 4 mg SL TID #12 od.tablet 12/06/19 Asthma: No Cancer: No Cardiac Disorders: No COPD: No Diabetes: No HTN: No Psychiatric Problems: Yes (anxiety) Seizures: No Thyroid Disease: No - Reproductive History Is Patient Now?: Yes - Immunization History Immunization Up to Date: Yes - Psycho-Social/Smoking History Smoking History: Never smoked Have you smoked in the past 12 months: No Information on smoking cessation initiated: No - Substance Abuse Hx (Audit-C & DAST Scrn) How often the patient has a drink containing alcohol: Never Score: In Men: 4 or > Positive; In Women: 3 or > Positive: 0 Screen Result (Pos requires Nsg. Audit-10AR): Negative In the last yr the pt used illegal drug/Rx for NonMed reason: No Score: Yes response is considered Positive: 0 Screen Result (Positive result requires Nsg. DAST-10): Negative *Physical Exam - Vital Signs Last Vital Signs Temp Pulse Resp BP Pulse Ox 98.1 F 90 17 118/74 99 07/15/20 12:31 07/15/20 12:31 07/15/20 12:31 07/15/20 12:31 07/15/20 12:31 ED Treatment Course - LABORATORY CBC & Chemistry Diagram: 07/15/20 13:10 07/15/20 13:10 - RADIOLOGY Radiology Studies Ordered: Category Date Time Status PELVIC / BLADDER US [US] Stat Ultrasound 07/15/20 13:01 Ordered <14WKS US [US] Stat Ultrasound 07/15/20 13:01 Ordered Medical Decision Making - Medical Decision Making 07/15/20 13:20 A/P: 24-year-old woman with lower abdominal cramping radiating to her lower back for 24 hours Physical exam is unremarkable Patient 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 Cesar: Morphologically normal urinary bladder with no significant postvoid residual. Obstetrical ultrasound as read by Dr. Cesar: Single live intrauterine of 12 weeks 4 days gestational age with a heart rate of 161 bpm. Laboratory Tests 07/15/20 07/15/20 07/15/20 13:10 13:10 13:10 WBC 9.3 RBC 4.51 Hgb 12.3 Hct 37.3 MCV 82.7 MCH 27.3 MCHC 33.0 RDW 13.5 Plt Count 267 D MPV 8.6 Absolute Neuts (auto) 6.7 Neutrophils % 72.2 Lymphocytes % 16.8 D Monocytes % 7.4 Eosinophils % 3.2 Basophils % 0.4 Nucleated RBC % 0 PT with INR 11.30 INR 0.96 PTT (Actin FS) 32.3 Sodium Potassium Chloride Carbon Dioxide Anion Gap BUN Creatinine Est GFR (CKD-EPI)AfAm Est GFR (CKD-EPI)NonAf Random Glucose Calcium Total Bilirubin AST ALT Alkaline Phosphatase Total Protein Albumin Urine Color Yellow Urine Appearance Cloudy Urine pH 6.5 Ur Specific [place] 1.031 Urine Protein Trace Urine Glucose (UA) Negative Urine Ketones Trace H Urine Blood Negative Urine Nitrite Negative Urine Bilirubin Negative Urine Urobilinogen 1.0 Ur Leukocyte Esterase Negative Urine HCG, Qual Positive Blood Type Antibody Screen 07/15/20 07/15/20 13:10 13:10 WBC RBC Hgb Hct MCV MCH MCHC RDW Plt Count MPV Absolute Neuts (auto) Neutrophils % Lymphocytes % Monocytes % Eosinophils % Basophils % Nucleated RBC % PT with INR INR PTT (Actin FS) Sodium 139 Potassium 5.0 Chloride 106 Carbon Dioxide 27 Anion Gap 6 L BUN 10.2 Creatinine 0.7 Est GFR (CKD-EPI)AfAm 140.55 Est GFR (CKD-EPI)NonAf 121.27 Random Glucose 69 L Calcium 9.4 Total Bilirubin 0.4 AST 15 ALT 15 Alkaline Phosphatase 67 Total Protein 7.3 Albumin 3.7 Urine Color Urine Appearance Urine pH Ur Specific [place] Urine Protein Urine Glucose (UA) Urine Ketones Urine Blood Urine Nitrite Urine Bilirubin Urine Urobilinogen Ur Leukocyte Esterase Urine HCG, Qual Blood Type O POSITIVE Antibody Screen Negative Discharge home to follow-up with CHIEF ELECTRICIAN I discussed the physical exam findings, ancillary test results and final diagnoses with the patient. I answered all of the patient's questions. The patient was satisfied with the care received and felt comfortable with the discharge plan and treatment plan. The patient will call their primary care physician within 24 hours to arrange follow-up and will return to the Emergency Department with any new, persistent or worsening symptoms. Portions of this note have been documented using voice recognition software. As a result, errors may occur in the drafter civil (cad) process. Effort has been made to correct all grammatical and drafter civil (cad) error, but some may have been missed which may produce sporadic inaccurate drafter civil (cad) or nonsensical phrases. 07/15/20 15:30 Discharge - Discharge Information Problems reviewed: Yes Clinical Impression/Diagnosis: Abdominal pain during in first trimester Condition: Stable Disposition: HOME - Admission No - Follow up/Referral - Patient Discharge Instructions Additional Instructions: Continue vitamins as previously directed. Take Tylenol for pain. Follow is consultant's instructions for appropriate dosage. Avoid medication such as Motrin, ibuprofen, Advil, Naprosyn or Aleve for pain as this can be harmful to your child and can lead to bleeding. Eat a well-balanced diet. Stay well-hydrated. Your emergency department visit is incomplete until you follow-up with your CHIEF ELECTRICIAN. Return to the emergency department for any new or worsening symptoms. Thank you very much for choosing us to provide your emergent healthcare needs. - Post Discharge Activity
[2020-07-15 13:37] LABS: BASO % 0.4 % (0-2.0); EOS % 3.2 % (0-4.5); HEMATOCRIT 37.3 % (32.4-45.2); HEMOGLOBIN 12.3 GM/dL (10.7-15.3); LYMPH % 16.8 % (8-40); MCH 27.3 pg (25.7-33.7); MEAN CELL VOLUME 82.7 fl (80-96); MEAN PLT VOLUME 8.6 fl (7.5-11.1); MONO % 7.4 % (3.8-10.2); NEUT % 72.2 % (42.8-82.8); PLATELET COUNT 267 K/MM3 (134-434); RBC 4.51 M/mm3 (3.60-5.2); RDW 13.5 % (11.6-15.6); WHITE BLOOD COUNT 9.3 K/mm3 (4.0-10.0)
[2020-07-15 13:38] LABS: HCG,QUALITATIVE URINE Positive
[2020-07-15 13:39] LABS: PH,URINE 6.5 (5.0-8.0); URINE APPEARANCE CLOUDY; URINE BILIRUBIN NEGATIVE (NEGATIVE); URINE COLOR YELLOW; URINE GLUCOSE (UA) NEGATIVE (NEGATIVE); URINE KETONE TRACE (NEGATIVE); URINE LEUK ESTERASE NEGATIVE (NEGATIVE); URINE NITRITE NEGATIVE (NEGATIVE); URINE PROTEIN TRACE (NEGATIVE)
[2020-07-15 13:44] LABS: INR 0.96 (0.83-1.09); PROTHROMBIN TIME (PATIENT) 11.3 SEC (9.7-13.0)
[2020-07-15 13:47] LABS: ACTIVATED PTT 32.3 SECONDS (25.2-36.5)
[2020-07-15 14:16] LABS: ALBUMIN 3.7 g/dl (3.4-5.0); BILIRUBIN,TOTAL 0.4 mg/dL (0.2-1); BLOOD UREA NITROGEN 10.2 mg/dL (7-18); CALCIUM 9.4 mg/dL (8.5-10.1); CREATININE 0.7 mg/dL (0.55-1.3); TOT PROT 7.3 g/dl (6.4-8.2)
[2020-07-15 15:39] VITALS: BP 117/75; PULSE 80; TEMP 97.9
== END 2020-07-15 15:39 | disposition home or self-care (01) ==
LOC: JER 12:25
DX: O26.891 Other specified pregnancy related conditions, first trimester (principal); Z3A.11 11 weeks gestation of pregnancy
CPT/HCPCS: 36415; 76801-TC; 76856-TC; 80053; 81003; 84703; 85025; 85610; 85730; 86850; 86900; 86901; 99284-25

== ENCOUNTER 2020-12-17 | Inpatient (IN) | payer OTHER ==
[2020-12-17] MEDS: DEXTROSE 5%-LACTATED RINGERS 1,000 ML IV SCH ×2 (01:00→06:13)
[2020-12-17] MEDS ORDERED: AMPICILLIN SODIUM 2 GM VIAL ONE (01:55)
[2020-12-17] MEDS ORDERED: AMPICILLIN - 2 GM in SODIUM CHLORIDE 100 ML IVPB ONE (02:07)
[2020-12-17 02:30] VITALS: BMI 22.6
[2020-12-17 03:25] LABS: BASO % 0.2 % (0-2.0); HEMATOCRIT 34.8 % (32.4-45.2); HEMOGLOBIN 11.6 GM/dL (10.7-15.3); LYMPH % 8.2 % (8-40); MCH 28.8 pg (25.7-33.7); MCHC 33.4 g/dl (32.0-36.0); MEAN PLT VOLUME 9.2 fl (7.5-11.1); MONO % 1.9 % (3.8-10.2); NEUT % 89.7 % (42.8-82.8); PLATELET COUNT 209 K/MM3 (134-434); RBC 4.05 M/mm3 (3.60-5.2); RDW 12.2 % (11.6-15.6); WHITE BLOOD COUNT 11.2 K/mm3 (4.0-10.0)
[2020-12-17 03:35] LABS: INR 0.97 (0.83-1.09); PROTHROMBIN TIME (PATIENT) 11.7 SEC (9.7-13.0)
[2020-12-17 03:37] LABS: ACTIVATED PTT 29.5 SECONDS (25.2-36.5)
[2020-12-17 03:44] LABS: POTASSIUM 4.1 mmol/L (3.5-5.1)
[2020-12-17 03:46] LABS: BLOOD UREA NITROGEN 7.3 mg/dL (7-18); CALCIUM 8.8 mg/dL (8.5-10.1)
[2020-12-17 03:49] LABS: CREATININE 0.7 mg/dL (0.55-1.3)
[2020-12-17 04:43] LABS: HIV INTERPRETATION NEGATIVE (NEGATIVE)
[2020-12-17] MEDS ORDERED: AMPICILLIN SODIUM 1 GM VIAL ONE ×4 (05:58→22:22)
[2020-12-17] MEDS ORDERED: BETAMET ACET/BETAMET NA PH 30 MG/5 ML VIAL IM ONE (06:00)
[2020-12-17] MEDS: AMPICILLIN - 1 GM in SODIUM CHLORIDE 100 ML IVPB SCH ×5 (06:00→22:19)
[2020-12-17 08:53] LABS: POC NITRAZINE NEG
[2020-12-17] MEDS: PRENATAL VITAMINS W/ FOLIC ACID TABLET (FP) PO SCH (10:05)
[2020-12-17] MEDS ORDERED: AZITHROMYCIN 500 MG TABLET PO ONE (11:45)
[2020-12-17] MEDS ORDERED: SODIUM CHLORIDE 100 ML IVPB ONE (22:22)
[2020-12-18] MEDS ORDERED: SODIUM CHLORIDE 100 ML IVPB ONE ×2 (02:44→06:20)
[2020-12-18] MEDS ORDERED: AMPICILLIN SODIUM 1 GM VIAL ONE ×3 (02:44→10:11)
[2020-12-18] MEDS: AMPICILLIN - 1 GM in SODIUM CHLORIDE 100 ML IVPB SCH ×4 (02:52→10:00)
[2020-12-18] MEDS: DEXTROSE 5%-LACTATED RINGERS 1,000 ML IV SCH ×2 (06:03→08:00)
[2020-12-18] MEDS ORDERED: PRENATAL VITAMINS W/ FOLIC ACID TABLET (FP) PO ONE (10:41)
[2020-12-18] MEDS: PRENATAL VITAMINS W/ FOLIC ACID TABLET (FP) PO SCH (10:44)
[2020-12-18] MEDS: AMOXICILLIN 250 MG CAPSULE PO SCH ×2 (14:45→22:40)
[2020-12-19] MEDS: DEXTROSE 5%-LACTATED RINGERS 1,000 ML IV SCH (02:48)
[2020-12-19] MEDS: AMOXICILLIN 250 MG CAPSULE PO SCH ×3 (05:42→22:13)
[2020-12-19] MEDS: PRENATAL VITAMINS W/ FOLIC ACID TABLET (FP) PO SCH (11:01)
[2020-12-20] MEDS: AMOXICILLIN 250 MG CAPSULE PO SCH ×2 (06:55→13:17)
[2020-12-20] MEDS: PRENATAL VITAMINS W/ FOLIC ACID TABLET (FP) PO SCH (10:14)
[2020-12-20 11:29] LABS: BASO % 0.4 % (0-2.0); HEMATOCRIT 33.7 % (32.4-45.2); HEMOGLOBIN 11.5 GM/dL (10.7-15.3); LYMPH % 18.6 % (8-40); MCH 29.3 pg (25.7-33.7); MCHC 34.2 g/dl (32.0-36.0); MEAN CELL VOLUME 85.7 fl (80-96); MEAN PLT VOLUME 8.7 fl (7.5-11.1); PLATELET COUNT 200 K/MM3 (134-434); RBC 3.94 M/mm3 (3.60-5.2); RDW 12.4 % (11.6-15.6); WHITE BLOOD COUNT 8.5 K/mm3 (4.0-10.0)
[2020-12-20 12:05] VITALS: BP 117/79; PULSE 71; TEMP 98
[2020-12-20 12:27] LABS: ANISOCYTOSIS 0; MACROCYTOSIS 0; PLATELET ESTIMATE NORMAL
== END 2020-12-20 13:47 | disposition home or self-care (01) | DRG 563 ==
LOC: JLDR → J3W 12-18 16:00
PROVIDERS: ADMIT Obstetrics & Gynecology; ATTEND Obstetrics & Gynecology
DX: O60.03 Preterm labor without delivery, third trimester (principal); Z3A.34 34 weeks gestation of pregnancy
CPT/HCPCS: 36415; 76801-TC; 76817-TC; 76819-TC; 80048; 83986-QW; 85025; 85610; 85730; 86780; 86850; 86900; 86901; 87389; 96372; C9803; U0003

== ENCOUNTER 2021-01-05 09:02 | Inpatient (IN) | payer OTHER ==
[2021-01-05] MEDS ORDERED: ELECTROLYTE-148 SOLN 1,000 ML IV SCH (09:45)
[2021-01-05] MEDS ORDERED: ELECTROLYTE-148 SOLN 500 ML IV ONE (09:45)
[2021-01-05 10:59] VITALS: BMI 24.8
[2021-01-05] MEDS ORDERED: FENTANYL/BUPIVACAINE/NS/PF - PCEA - 50 ML DISP.SYRIN EP ONE (11:02)
[2021-01-05] MEDS ORDERED: PCA PUMP NR ONE (11:02)
[2021-01-05] MEDS ORDERED: BUPIVACAINE HCL/PF 0.25% (2.5MG/ML) 10 ML VIAL ONE (11:05)
[2021-01-05 11:27] LABS: BASO % 0.8 % (0-2.0); EOS % 1.5 % (0-4.5); HEMATOCRIT 34.6 % (32.4-45.2); HEMOGLOBIN 11.9 GM/dL (10.7-15.3); LYMPH % 14.7 % (8-40); MCH 29.3 pg (25.7-33.7); MCHC 34.3 g/dl (32.0-36.0); MEAN CELL VOLUME 85.4 fl (80-96); MEAN PLT VOLUME 8.5 fl (7.5-11.1); MONO % 6.7 % (3.8-10.2); NEUT % 76.3 % (42.8-82.8); PLATELET COUNT 205 K/MM3 (134-434); RBC 4.05 M/mm3 (3.60-5.2); RDW 12.7 % (11.6-15.6)
[2021-01-05] MEDS ORDERED: NALOXONE HCL 0.4 MG/ML VIAL IVPUSH PRN (11:31)
[2021-01-05 11:42] LABS: INR 0.91 (0.83-1.09); PROTHROMBIN TIME (PATIENT) 11.1 SEC (9.7-13.0)
[2021-01-05] MEDS ORDERED: FENTANYL/BUPIVACAINE/NS/PF - PCEA - 50 ML DISP.SYRIN EP SCH (11:45)
[2021-01-05 11:52] LABS: CALCIUM 8.8 mg/dL (8.5-10.1)
[2021-01-05 11:53] LABS: BLOOD UREA NITROGEN 5.9 mg/dL (7-18)
[2021-01-05 11:56] LABS: CREATININE 0.5 mg/dL (0.55-1.3); POTASSIUM 3.9 mmol/L (3.5-5.1)
[2021-01-05] MEDS ORDERED: OXYTOCIN 20 UNITS in 0.9% NS 20 UNIT/1,000 ML INFUS.BAG IV ONE ×2 (12:05→16:48)
[2021-01-05] MEDS: OXYTOCIN 20 UNITS in 0.9% NS 20 UNIT/1,000 ML INFUS.BAG IV SCH ×2 (12:15→16:42)
[2021-01-05] MEDS ORDERED: METHYLERGONOVINE MALEATE 0.2 MG/1 ML AMP IM PRN (12:28)
[2021-01-05] MEDS ORDERED: WITCH HAZEL 50% (TUCKS) 40 PAD/JAR PAD TP PRN (12:28)
[2021-01-05] MEDS ORDERED: BISACODYL 10 MG SUPP.RECT RC PRN (12:28)
[2021-01-05] MEDS ORDERED: BENZOCAINE 28 GM HEMORRHOIDAL OINTMENT TP PRN (12:28)
[2021-01-05] MEDS ORDERED: BENZOCAINE 20% 57 GM BOTTLE TP PRN (12:28)
[2021-01-05] MEDS: IBUPROFEN 600 MG TABLET (FP) PO PRN (16:41)
[2021-01-06 08:36] LABS: BASO % 0.8 % (0-2.0); EOS % 3.6 % (0-4.5); HEMATOCRIT 35.1 % (32.4-45.2); HEMOGLOBIN 11.9 GM/dL (10.7-15.3); LYMPH % 16.6 % (8-40); MCH 29.3 pg (25.7-33.7); MONO % 4.1 % (3.8-10.2); NEUT % 74.9 % (42.8-82.8); PLATELET COUNT 199 K/MM3 (134-434); RBC 4.08 M/mm3 (3.60-5.2); RDW 12.4 % (11.6-15.6); WHITE BLOOD COUNT 10.8 K/mm3 (4.0-10.0)
[2021-01-06] MEDS: IBUPROFEN 600 MG TABLET (FP) PO PRN ×2 (09:24→21:30)
[2021-01-06] MEDS: ACETAMINOPHEN 325 MG TABLET (FP) PO PRN ×2 (09:25→23:00)
[2021-01-06] MEDS: PRENATAL VITAMINS W/ FOLIC ACID TABLET (FP) PO SCH (09:26)
[2021-01-06] MEDS ORDERED: SENNOSIDES/DOCUSATE COMBO (SENNA PLUS) TABLET (UD) PO PRN (22:00)
[2021-01-06] MEDS: OXYTOCIN 20 UNITS in 0.9% NS 20 UNIT/1,000 ML INFUS.BAG IV SCH (22:59)
[2021-01-07] MEDS: ACETAMINOPHEN 325 MG TABLET (FP) PO PRN (09:55)
[2021-01-07] MEDS: IBUPROFEN 600 MG TABLET (FP) PO PRN (09:55)
[2021-01-07] MEDS: PRENATAL VITAMINS W/ FOLIC ACID TABLET (FP) PO SCH (09:56)
[2021-01-07 13:23] VITALS: BP 114/73; PULSE 86; TEMP 98
== END 2021-01-07 12:00 | disposition home or self-care (01) | DRG 560 ==
LOC: JDEL 09:02 → JLDR 09:28 → J3W 14:26
PROVIDERS: ADMIT Obstetrics & Gynecology; ATTEND Obstetrics & Gynecology
PROC: 10E0XZZ Delivery of Products of Conception, External Approach (ICD-10-PCS; principal; 2021-01-05)
PROC: 0W8NXZZ Division of Female Perineum, External Approach (ICD-10-PCS; 2021-01-05)
PROC: 0HQ9XZZ Repair Perineum Skin, External Approach (ICD-10-PCS; 2021-01-05)
DX: O70.0 First degree perineal laceration during delivery (principal); Z3A.37 37 weeks gestation of pregnancy; Z37.0 Single live birth; Z91.010 Allergy to peanuts
CPT/HCPCS: 36415; 59409; 80048; 85025; 85610; 85730; 86780; 86850; 86900; 86901; C9803; U0003

== ENCOUNTER 2024-01-08 19:31 | Emergency (ER) | payer OTHER ==
[2024-01-08 19:35] VITALS: RESP 18; BMI 21.7
[2024-01-08] MEDS ORDERED: MAG HYDROX/AL HYDROX/SIMETH 30 ML UNIT-DOSE CUP ONE (20:47)
[2024-01-08] MEDS ORDERED: ACETAMINOPHEN INJECTION 100 ML IVPB ONE (20:47)
[2024-01-08] MEDS: MAG HYDROX/AL HYDROX/SIMETH 30 ML UNIT-DOSE CUP PO ONE (20:56)
[2024-01-08] MEDS: ACETAMINOPHEN 1000 MG/100 ML BAG IVPB ONE (20:56)
[2024-01-08] MEDS ORDERED: PANTOPRAZOLE SODIUM 40 MG VIAL ONE (21:01)
[2024-01-08] MEDS: PANTOPRAZOLE SODIUM 40 MG VIAL IVPUSH ONE (21:06)
[2024-01-08 21:10] LABS: BASO % 0.3 % (0-2.0); EOS % 0.8 % (0-4.5); HEMATOCRIT 34.6 % (32.4-45.2); HEMOGLOBIN 11.5 GM/dL (10.7-15.3); LYMPH % 6.8 % (8-40); MCH 26.4 pg (25.7-33.7); MCHC 33.1 g/dl (32.0-36.0); MEAN CELL VOLUME 79.7 fl (80-96); MEAN PLT VOLUME 8.1 fl (7.5-11.1); MONO % 6.5 % (3.8-10.2); NEUT % 85.6 % (42.8-82.8); PLATELET COUNT 265 10^3/uL (134-434); RBC 4.35 M/mm3 (3.60-5.2); RDW 13.5 % (11.6-15.6); WHITE BLOOD COUNT 14.1 K/mm3 (4.0-10.0)
[2024-01-08 21:30] LABS: POTASSIUM 4.1 mmol/L (3.5-5.1)
[2024-01-08 21:32] LABS: CALCIUM 9.3 mg/dL (8.5-10.1)
[2024-01-08 21:33] LABS: ALBUMIN 3.9 g/dl (3.4-5.0); BLOOD UREA NITROGEN 10.6 mg/dL (7-18)
[2024-01-08 21:36] LABS: CREATININE 0.9 mg/dL (0.55-1.3)
[2024-01-08 21:37] LABS: TOT PROT 7.2 g/dl (6.4-8.2)
[2024-01-08 21:38] LABS: BILIRUBIN,TOTAL 0.6 mg/dL (0.2-1)
[2024-01-09 00:10] LABS: URINE APPEARANCE CLEAR; URINE BILIRUBIN NEGATIVE (NEGATIVE); URINE COLOR YELLOW; URINE GLUCOSE (UA) NEGATIVE (NEGATIVE); URINE KETONE NEGATIVE (NEGATIVE); URINE LEUK ESTERASE NEGATIVE (NEGATIVE); URINE NITRITE NEGATIVE (NEGATIVE); URINE PROTEIN NEGATIVE (NEGATIVE); URINE UROBILINOGEN 0.2 mg/dL (0.2-1.0)
[2024-01-09 01:10] VITALS: BP 106/61; PULSE 75; TEMP 98.3
[2024-01-09 02:12] LABS: INR 1.11 (0.83-1.09); PROTHROMBIN TIME (PATIENT) 12.9 SEC (9.7-13.0)
[2024-01-09] MEDS ORDERED: MAG HYDROX/AL HYDROX/SIMETH 30 ML UNIT-DOSE CUP ONE (03:33)
[2024-01-09] MEDS ORDERED: SUCRALFATE 1 GM TABLET (FP) ONE (03:33)
[2024-01-09] MEDS: SUCRALFATE 1 GM TABLET (FP) PO ONE (04:03)
[2024-01-09] MEDS: MAG HYDROX/AL HYDROX/SIMETH 30 ML UNIT-DOSE CUP PO ONE (04:03)
== END 2024-01-09 05:24 | disposition home or self-care (01) ==
LOC: JER 19:31
PROC: 3E033NZ Introduction of Analgesics, Hypnotics, Sedatives into Peripheral Vein, Percutaneous Approach (ICD-10-PCS; principal; 2024-01-08)
PROC: 3E033GC Introduction of Other Therapeutic Substance into Peripheral Vein, Percutaneous Approach (ICD-10-PCS; 2024-01-08)
DX: R10.12 Left upper quadrant pain (principal); N83.201 Unspecified ovarian cyst, right side; R74.01 Elevation of levels of liver transaminase levels; Z20.822 Contact with and (suspected) exposure to COVID-19
CPT/HCPCS: 0241U-QW; 36415; 74177-TC; 76705-TC; 76830-TC; 80053; 80307; 81003; 83690; 84703; 85025; 85610; 87086; 93005; 93010; 96374; 96375; 99285-25; J0131

== ENCOUNTER 2024-01-24 14:55 | Inpatient (IN) | payer OTHER ==
[2024-01-24 15:02] VITALS: BMI 20.9
[2024-01-24 16:03] LABS: EOS % 4.8 % (0-4.5); HEMATOCRIT 39.3 % (32.4-45.2); HEMOGLOBIN 13.3 GM/dL (10.7-15.3); LYMPH % 29.8 % (8-40); MCH 26.9 pg (25.7-33.7); MCHC 33.9 g/dl (32.0-36.0); MEAN CELL VOLUME 79.4 fl (80-96); MEAN PLT VOLUME 7.7 fl (7.5-11.1); MONO % 8.1 % (3.8-10.2); NEUT % 56.3 % (42.8-82.8); PLATELET COUNT 367 10^3/uL (134-434); RBC 4.95 M/mm3 (3.60-5.2); RDW 13.7 % (11.6-15.6); WHITE BLOOD COUNT 5.4 K/mm3 (4.0-10.0)
[2024-01-24] MEDS ORDERED: ACETAMINOPHEN INJECTION 100 ML IVPB ONE (16:05)
[2024-01-24] MEDS: ACETAMINOPHEN 1000 MG/100 ML BAG IVPB ONE (16:14)
[2024-01-24 16:17] LABS: EPI CELLS 3 /uL (0-25.1); HYALINE CASTS 0 /uL (0-3.1); URINE APPEARANCE CLEAR; URINE BACTERIA 5 /uL (0-1359); URINE BILIRUBIN NEGATIVE (NEGATIVE); URINE COLOR YELLOW; URINE GLUCOSE (UA) NEGATIVE (NEGATIVE); URINE KETONE NEGATIVE (NEGATIVE); URINE LEUK ESTERASE TRACE (NEGATIVE); URINE NITRITE NEGATIVE (NEGATIVE); URINE PROTEIN NEGATIVE (NEGATIVE); URINE RBC 3029 /uL (0-23.9); URINE UROBILINOGEN 0.2 mg/dL (0.2-1.0); URINE WBC 7 /uL (0-25.8)
[2024-01-24 16:35] LABS: ALBUMIN 4.3 g/dl (3.4-5.0); BILIRUBIN,TOTAL 0.5 mg/dL (0.2-1); BLOOD UREA NITROGEN 8.2 mg/dL (7-18); CALCIUM 8.8 mg/dL (8.5-10.1); CREATININE 0.8 mg/dL (0.55-1.3)
[2024-01-24] MEDS ORDERED: CEFTRIAXONE 1 GM/50 ML BAG ONE (16:46)
[2024-01-24] MEDS: CEFTRIAXONE 1 GM in DEXTROSE 5%-WATER - 100 ML IVPB ONE (16:55)
[2024-01-24] MEDS ORDERED: DOXYCYCLINE HYCLATE 100 MG VIAL ONE (18:31)
[2024-01-24] MEDS: DOXYCYCLINE INJECTION 100 MG in DEXTROSE 5%-WATER 100 ML IVPB SCH (18:41)
[2024-01-24] MEDS: ACETAMINOPHEN 325 MG TABLET (FP) PO PRN (20:45)
[2024-01-24] MEDS: DOXYCYCLINE INJECTION 100 MG in DEXTROSE 5%-WATER 100 ML IVPB ONE (21:29)
[2024-01-24] MEDS ORDERED: IBUPROFEN 600 MG TABLET (FP) PO PRN (21:40)
[2024-01-25 07:44] LABS: BASO % 1.7 % (0-2.0); EOS % 8.9 % (0-4.5); HEMATOCRIT 34.3 % (32.4-45.2); HEMOGLOBIN 11.6 GM/dL (10.7-15.3); LYMPH % 39.3 % (8-40); MCH 27.1 pg (25.7-33.7); MCHC 33.7 g/dl (32.0-36.0); MEAN CELL VOLUME 80.6 fl (80-96); MEAN PLT VOLUME 8.3 fl (7.5-11.1); MONO % 9.6 % (3.8-10.2); NEUT % 40.5 % (42.8-82.8); PLATELET COUNT 300 10^3/uL (134-434); RBC 4.26 M/mm3 (3.60-5.2); RDW 13.6 % (11.6-15.6); WHITE BLOOD COUNT 4.4 K/mm3 (4.0-10.0)
[2024-01-25 07:53] LABS: POTASSIUM 4.4 mmol/L (3.5-5.1)
[2024-01-25 07:58] LABS: BLOOD UREA NITROGEN 12.8 mg/dL (7-18); CALCIUM 9.6 mg/dL (8.5-10.1)
[2024-01-25 08:01] LABS: CREATININE 0.8 mg/dL (0.55-1.3)
[2024-01-25 08:03] LABS: BILIRUBIN,TOTAL 0.4 mg/dL (0.2-1); TOT PROT 6.4 g/dl (6.4-8.2)
[2024-01-25 08:12] LABS: ALBUMIN 3.4 g/dl (3.4-5.0)
[2024-01-25] MEDS: CEFTRIAXONE 1 GM in DEXTROSE 5%-WATER - 50 ML IVPB SCH (09:19)
[2024-01-25 22:12] VITALS: BP 106/69; PULSE 68; RESP 16; TEMP 97.4
== END 2024-01-25 22:45 | disposition home or self-care (01) | DRG 531 ==
LOC: JER 14:55 → JERBED 16:37 → OBSVTOIN 19:50 → J3W 20:15
PROVIDERS: ADMIT Obstetrics & Gynecology; ATTEND Obstetrics & Gynecology
DX: N73.8 Other specified female pelvic inflammatory diseases (principal)
CPT/HCPCS: 36415; 80053; 81003; 84703; 85025; 85027; 87040; 87086; 87491; 87591; 99285-25; G0378; J0131